=== PATIENT | male | born 1985 | race Caucasian/White ===

== ENCOUNTER 2025-05-03 00:32 | Inpatient (IN) | payer OTHER ==
[2025-05-03] MEDS ORDERED: Ondansetron PF 4 MG/2 ML Vial IVP PRN (02:02)
[2025-05-03] MEDS ORDERED: Acetaminophen 325 MG TAB PO PRN (02:02)
[2025-05-03 06:08] VITALS: BMI 53.8
[2025-05-03 06:35] LABS: #Basophils 0.03 10x3/uL (0.0-0.2); #Eosinophils 0.04 10x3/uL (0.0-0.7); #Monocytes 1.22 10x3/uL (0.11-0.59); #Neutrophils 10.82 10x3/uL (1.40-6.50); %Basophils 0.2 % (0.0-1.0); %Eosinophils 0.3 % (0.0-10.0); %Lymphocytes 19.8 % (21.0-51.0); %Monocytes 8.0 % (0.0-10.0); %Neutrophils 71.0 % (42.0-75.0); Hematocrit 44.8 % (42.0-52.0); Hemoglobin 14.3 g/dL (14.0-18.0); Mean Corpuscular Hemoglobin 26.4 pg (27.0-31.0); Mean Corpuscular Volume 82.7 fL (78.0-98.0); Platelet Count 211 10x3/uL (130-400); Red Blood Cell (RBC) Count 5.42 mill/uL (4.70-6.10); White Blood Cell (WBC) Count 15.23 10x3/uL (4.8-10.8)
[2025-05-03 06:51] LABS: ALT (SGPT) 75 U/L (Less than 45); AST (SGOT) 37 U/L (11-34); Albumin 3.5 g/dL (3.1-4.5); Alkaline Phosphatase 71 U/L (40-110); Anion Gap 14 mmol/L (10-20); BUN (Urea Nitrogen) 12 mg/dL (8.9-20.6); Bilirubin, Total 0.3 mg/dL (0.3-1.2); Calc. Creatinine Clearance 292 mL/min (70-130); Calcium 9.2 mg/dL (7.8-10.44); Carbon Dioxide 22 mmol/L (22-29); Chloride 105 mmol/L (98-107); Globulin 3.6 g/dL (2.4-3.5); Glucose 98 mg/dL (70-105); Potassium 4.1 mmol/L (3.5-5.1); Sodium 137 mmol/L (136-145)
[2025-05-03] MEDS: Pantoprazole 40 MG DR.TAB PO SCH (09:05)
[2025-05-03] MEDS: Enoxaparin 40 MG (0.4 mL) SYRINGE SC SCH (09:05)
[2025-05-03 11:49] VITALS: BP 128/80; TEMP 97.9
== END 2025-05-03 12:55 | disposition home or self-care (01) | DRG 305 ==
LOC: ERS 00:32 → ERHOLD 01:14 → 2NO 04:21
PROVIDERS: ADMIT Internal Medicine; ATTEND Internal Medicine
DX: I16.0 Hypertensive urgency (principal); K82.1 Hydrops of gallbladder
CPT/HCPCS: 36416; 80053; 85025; 96365; J1650